=== PATIENT | female | born 1995 | race Caucasian/White ===

== ENCOUNTER 2018-04-28 16:57 | Emergency (ER) | payer SELFPAY ==
[2018-04-28] MEDS ORDERED: Ketorolac Tromethamine 30 MG/ML VIAL ONE (17:24)
[2018-04-28] MEDS ORDERED: Acetaminophen 500 MG TAB ONE (17:50)
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
== END 2018-04-28 18:24 | disposition home or self-care (01) ==
LOC: ERS 16:57
DX: S60.211A Contusion of right wrist, initial encounter (principal); S20.211A Contusion of right front wall of thorax, initial encounter; V43.52XA Car driver injured in collision with other type car in traffic accident, initial encounter
CPT/HCPCS: J1885